=== PATIENT | male | born 1985 | race Caucasian/White ===

== ENCOUNTER 2018-12-27 09:00 | Inpatient (IN) | payer MEDICAID ==
[~2018-12-27] VITALS: Ht 172.7 cm; Wt 104.3 kg
[2018-12-27] MEDS ORDERED: ONDANSETRON HCL 4MG/2ML INJ IV STA (09:24)
[2018-12-27] MEDS ORDERED: SODIUM CHLORIDE 0.9% 1000ML BAG (SEPSIS BOLUS) IV ONE (09:30)
[2018-12-27 09:45] LABS: HEMATOCRIT. 37.8 % (42.0-52.0); HEMOGLOBIN. 12.9 g/dL (14.0-18.0); MEAN CORPUSCULAR HEMOGLOBIN 29.7 pg (28.0-32.0); MEAN CORPUSCULAR VOLUME 87.4 fL (80.0-94.0); MEAN PLATELET VOLUME 8.3 fl (7.4-10.4); PLATELET 116 x1000/uL (130-400); RED BLOOD CELL COUNT 4.33 mill/uL (4.7-6.1); RED CELL DISTRIBUTION WIDTH 13.2 % (11.6-14.6)
[2018-12-27 09:54] LABS: INR 1.4; PROTHROMBIN TIME 13.9 sec (9.6-11.0)
[2018-12-27 09:59] LABS: CHLORIDE 106 mEq/L (98-107); ETHANOL BLOOD < 10 mg/dL
[2018-12-27 10:12] LABS: PLATELET ESTIMATE SLIGHTLY DECREASED
[2018-12-27] MEDS ORDERED: VANCOMYCIN 1 G PREMIX 200 ML IV ONE (10:15)
[2018-12-27] MEDS ORDERED: LEVOFLOXACIN 750MG PREMIX 150 ML IV ONE (10:15)
[2018-12-27] MEDS ORDERED: CHLORDIAZEPOXIDE 25MG CAPSULE PO ONE (11:15)
[2018-12-27 12:29] LABS: CLARITY URINE CLEAR (CLEAR); COLOR URINE YELLOW (YELLOW); KETONES URINE 1+ (NEGATIVE); LEUKOCYTE ESTERASE URINE TRACE (NEGATIVE); NITRITE URINE NEGATIVE (NEGATIVE); OCCULT BLOOD URINE NEGATIVE (NEGATIVE); PROTEIN URINE TRACE (NEGATIVE)
[2018-12-27 12:41] LABS: *AMPHETAMINES SCREEN URINE NEGATIVE (NEGATIVE); *BARBITURATES SCREEN URINE NEGATIVE (NEGATIVE); *BENZODIAZEPINES SCREEN URINE NEGATIVE (NEGATIVE)
[2018-12-27 12:42] LABS: *COCAINE SCREEN URINE NEGATIVE (NEGATIVE)
[2018-12-27 12:44] LABS: PHENCYCLIDINE URINE SCREEN NEGATIVE (NEGATIVE)
[2018-12-27 12:45] LABS: CANNABINOID URINE SCREEN NEGATIVE (NEGATIVE); METHADONE URINE SCREEN NEGATIVE (NEGATIVE); OPIATES URINE SCREEN PRESUMTIVE POSITIVE (NEGATIVE)
[2018-12-27 14:30] VITALS: BP 150/104
[2018-12-27 16:48] VITALS: BP 150/104
[2018-12-27] MEDS ORDERED: LORAZEPAM 2MG/ML CPJ IV PRN (18:15)
[2018-12-27] MEDS ORDERED: ACETAMINOPHEN 325MG TABLET PO PRN (18:15)
[2018-12-27] MEDS ORDERED: SODIUM CHL 0.45% + KCL 20MEQ/L 1,000 ML IV SCH (18:15)
[2018-12-27] MEDS ORDERED: MAGNESIUM/ALUMINUM HYDROXIDE/SIMETHICONE 30ML UDC PO PRN (18:15)
[2018-12-27] MEDS ORDERED: CLONIDINE 0.1MG TABLET PO PRN (18:15)
[2018-12-27] MEDS ORDERED: ONDANSETRON HCL 4MG/2ML INJ IV PRN (18:15)
[2018-12-27] MEDS ORDERED: THIAMINE HCL 100MG TABLET PO NR (18:24)
[2018-12-27] MEDS ORDERED: OCTREOTIDE 1,000 MCG in SODIUM CHLORIDE 0.9% 100 ML IV PRN (19:30)
[2018-12-27] MEDS ORDERED: OCTREOTIDE ACETATE 50 MCG/ML 1ML IV NR (19:30)
[2018-12-27 20:00] VITALS: BP 125/79
[2018-12-27] MEDS ORDERED: FOLIC ACID 1 MG, THIAMINE HCL 100 MG, MVI, ADULT NO.1 10 ML in DEXTROSE 5% WATER 1,000 ML IV SCH ×4 (20:30)
[2018-12-27] MEDS ORDERED: DEXT 5%/0.45% NACL KCL 20MEQ/L 1,000 ML IV SCH (20:30)
[2018-12-27] MEDS ORDERED: PROPRANOLOL HCL 20MG TABLET PO SCH (21:00)
[2018-12-27] MEDS: FAMOTIDINE 20MG/2ML VIAL IV SCH (22:03)
[2018-12-27] MEDS: FOLIC ACID 1 MG, THIAMINE HCL 100 MG, MVI, ADULT NO.1 10 ML in DEXTROSE 5% WATER 1,000 ML IV SCH ×4 (22:03)
[2018-12-28] VITALS: BP 146/97
[2018-12-28 06:42] LABS: BASOPHILS % 0.9 % (0.0-2.0); EOSINOPHILS % 0.8 % (0.0-5.0); HEMATOCRIT. 33.3 % (42.0-52.0); HEMOGLOBIN. 11.2 g/dL (14.0-18.0); LYMPHOCYTES % 27.4 % (20.0-50.0); MEAN CORPUSCULAR HEMOGLOBIN 29.7 pg (28.0-32.0); MEAN CORPUSCULAR VOLUME 88.3 fL (80.0-94.0); MEAN PLATELET VOLUME 8.9 fl (7.4-10.4); MONOCYTES % 9.1 % (2.0-8.0); NEUTROPHILS % 61.8 % (40.0-76.0); PLATELET 101 x1000/uL (130-400); RED BLOOD CELL COUNT 3.77 mill/uL (4.7-6.1); RED CELL DISTRIBUTION WIDTH 12.8 % (11.6-14.6)
[2018-12-28 06:49] LABS: CHLORIDE 108 mEq/L (98-107)
[2018-12-28 06:57] LABS: PHOSPHORUS 2.2 mg/dL (2.5-4.9); TOTAL IRON BINDING CAPACITY 272 ug/dL (250-450)
[2018-12-28 07:47] LABS: CLARITY URINE CLEAR (CLEAR); COLOR URINE ORANGE (YELLOW); KETONES URINE NEGATIVE (NEGATIVE); LEUKOCYTE ESTERASE URINE NEGATIVE (NEGATIVE); NITRITE URINE NEGATIVE (NEGATIVE); OCCULT BLOOD URINE NEGATIVE (NEGATIVE); PH URINE 7.5 (4.5-8.0); PROTEIN URINE NEGATIVE (NEGATIVE); SPECIFIC GRAVITY URINE 1.021 (1.005-1.030)
[2018-12-28 08:00] VITALS: BP 145/97
[2018-12-28] MEDS: FAMOTIDINE 20MG/2ML VIAL IV SCH ×2 (08:59→20:37)
[2018-12-28] MEDS ORDERED: PROPRANOLOL HCL 20MG TABLET PO SCH (09:00)
[2018-12-28] MEDS: THIAMINE HCL 100MG TABLET PO SCH (09:00)
[2018-12-28] MEDS ORDERED: POTASSIUM CHLORIDE INJ 40 MEQ in DEXT 5% WATER 250 ML IV NR (10:00)
[2018-12-28] MEDS ORDERED: SIMETHICONE 40 MG/0.6 ML 30ML ONE (10:41)
[2018-12-28] MEDS ORDERED: BACTERIOSTATIC SODIUM CHLORIDE 0.9% 30ML VIAL IJ ONE (10:41)
[2018-12-28 10:54] LABS: HEPATITIS B SURFACE ANTIGEN NEGATIVE
[2018-12-28] MEDS: POTASSIUM-SODIUM PHOSPHATE POWDER PACKET PO SCH ×2 (10:58→17:02)
[2018-12-28] MEDS: POTASSIUM CHLORIDE 20MEQ TABLET SR PO SCH (10:58)
[2018-12-28 11:22] LABS: HEPATITIS A AB IGM NEGATIVE (NEGATIVE)
[2018-12-28 12:00] VITALS: BP 143/82
[2018-12-28] MEDS ORDERED: MIDAZOLAM HCL 5 MG/5 ML VIAL ONE (15:31)
[2018-12-28] MEDS ORDERED: FENTANYL CITRATE/PF 50MCG/ML 2ML VIAL ONE (15:31)
[2018-12-28] MEDS ORDERED: MIDAZOLAM HCL 5 MG/5 ML VIAL IV PRN (15:44)
[2018-12-28] MEDS ORDERED: FENTANYL CITRATE/PF 50MCG/ML 2ML VIAL IV PRN (15:46)
[2018-12-28 16:00] VITALS: BP 150/99
[2018-12-28 20:00] VITALS: BP_SYST 139; BP_SYST 170; BP_DIAS 118; BP_DIAS 86
[2018-12-28] MEDS: FOLIC ACID 1 MG, THIAMINE HCL 100 MG, MVI, ADULT NO.1 10 ML in DEXTROSE 5% WATER 1,000 ML IV SCH ×4 (20:36)
[2018-12-28] MEDS: PROPRANOLOL HCL 20MG TABLET PO SCH (20:37)
[2018-12-29] VITALS: BP 170/77
[2018-12-29 04:00] VITALS: BP 134/89
[2018-12-29 08:00] VITALS: BP 137/68
[2018-12-29 08:50] LABS: BASOPHILS % 0.9 % (0.0-2.0); EOSINOPHILS % 1.7 % (0.0-5.0); HEMATOCRIT. 34.6 % (42.0-52.0); HEMOGLOBIN. 11.7 g/dL (14.0-18.0); LYMPHOCYTES % 20.3 % (20.0-50.0); MEAN CORPUSCULAR HEMOGLOBIN 29.7 pg (28.0-32.0); MEAN PLATELET VOLUME 8.7 fl (7.4-10.4); NEUTROPHILS % 69.1 % (40.0-76.0); PLATELET 137 x1000/uL (130-400); RED BLOOD CELL COUNT 3.94 mill/uL (4.7-6.1); RED CELL DISTRIBUTION WIDTH 12.8 % (11.6-14.6)
[2018-12-29] MEDS ORDERED: AMLODIPINE 5MG TABLET PO SCH (09:00)
[2018-12-29] MEDS: POTASSIUM CHLORIDE 20MEQ TABLET SR PO SCH (09:36)
[2018-12-29] MEDS: PROPRANOLOL HCL 20MG TABLET PO SCH (09:36)
[2018-12-29] MEDS: POTASSIUM-SODIUM PHOSPHATE POWDER PACKET PO SCH (09:36)
[2018-12-29] MEDS: FAMOTIDINE 20MG/2ML VIAL IV SCH (09:37)
[2018-12-29] MEDS: THIAMINE HCL 100MG TABLET PO SCH (09:38)
[2018-12-29 09:56] LABS: CHLORIDE 104 mEq/L (98-107)
[2018-12-29 10:03] LABS: PHOSPHORUS 3.8 mg/dL (2.5-4.9)
[2018-12-29 10:04] LABS: TOTAL IRON BINDING CAPACITY 305 ug/dL (250-450)
[2018-12-29 12:00] VITALS: BP 109/68
== END 2018-12-29 16:04 | disposition home or self-care (01) | DRG 280 ==
LOC: ER 09:27 → 6WST 13:05 → EDBEDREQ 14:31 → EDBEDREQSVC 14:31 → ENRESERV 15:49
PROVIDERS: ADMIT Internal Medicine Geriatric Medicine; ATTEND Internal Medicine Geriatric Medicine
PROC: 06L38CZ Occlusion of Esophageal Vein with Extraluminal Device, Via Natural or Artificial Opening Endoscopic (ICD-10-PCS; principal; 2018-12-28)
DX: K70.30 Alcoholic cirrhosis of liver without ascites (principal); I85.11 Secondary esophageal varices with bleeding; D68.9 Coagulation defect, unspecified; E66.01 Morbid (severe) obesity due to excess calories; D62 Acute posthemorrhagic anemia; E88.09 Other disorders of plasma-protein metabolism, not elsewhere classified; K76.6 Portal hypertension; K29.70 Gastritis, unspecified, without bleeding; I10 Essential (primary) hypertension; E87.6 Hypokalemia; K80.20 Calculus of gallbladder without cholecystitis without obstruction; F10.20 Alcohol dependence, uncomplicated; F41.1 Generalized anxiety disorder; K31.89 Other diseases of stomach and duodenum; R73.9 Hyperglycemia, unspecified; F17.200 Nicotine dependence, unspecified, uncomplicated; Z88.0 Allergy status to penicillin; Z68.35 Body mass index [BMI] 35.0-35.9, adult
CPT/HCPCS: 36415; 71045; 74176; 80048; 80076; 80305; 80320; 82140; 82728; 83036; 83540; 83550; 83605; 83735; 84100; 86705; 86709; 86803; 86850; 86900; 87076; 87340; 93005; 96374; 99152; 99285; J1956; J2250; J2354; J2405; J3010; J3370; J3411; J3480; J3490; J7030; J7040; J7050; J7060; J7070; G0480; G0500